=== PATIENT | male | born 1965 | race Caucasian/White ===

== ENCOUNTER 2018-05-28 11:14 | Emergency (ER) | payer BC, OTHER ==
--- NOTE | 2018-05-28 12:19 | ED Physician Documentation ---
PD HPI FOCAL NEURO - Stated complaint Stated Complaint: UNBALANCED WHILE STANDING - Chief complaint Chief Complaint: Neuro - History obtained from History obtained from: Patient - History of Present Illness Timing - onset: Today (he says he felt okay yesterday and going to bed last night. He says when he got up from bed this morning after awakening he felt off balance and that he might fall over. He started doing morning activities and felt probably and weaker with his left hand and leg. He denies any headache. Denies any facial droop. He is able to talk clearly. He denied any loss of vision. His says his answers to questions are a bit slower and deliberate than usual.) Timing - duration: Hours (unclear onset as awoke with symptoms) Timing - details: Abrupt onset Severity of deficit: Mild Weakness: Arm, Hand, Leg, Other (mostly feeling incoordinate with gross motor strength feeling okay.). No: Face Numbness: No: Face, Arm, Leg Associated symptoms: No: Headache, Nausea / vomiting, Syncope, Fall, Head injury Contributing factors: negative: Anticoagulated, Vascular dz, Atrial fibrillation Baseline status: positive: A&OX3, ambulatory, indep Similar symptoms before: Has not had sx before (but he says he had an episode about 2-3 weeks ago of left eye losing conjugate gaze (he and say it was just going in circles and sideways independent of the right eye), lastd just 10- 15 seconds then improved. No other symptoms.) Recently seen: Not recently seen Review of Systems Constitutional: denies: Fever, Chills Nose: denies: Rhinorrhea / runny nose, Congestion Throat: denies: Sore throat Cardiac: denies: Chest pain / pressure, Palpitations Respiratory: denies: Cough GI: denies: Abdominal Pain, Nausea, Vomiting Neurologic: reports: Focal weakness, Other (unsteady gait and left arm movements.). denies: Numbness, Difficulty speaking, Near syncope, Confused, Altered mental status, Headache, Head injury Endocrine: denies: Weight loss Immunocompromised: denies: Immunocompromised PD PAST MEDICAL HISTORY - Past Medical History Past Medical History: No Cardiovascular: None Respiratory: None Neuro: None Endocrine/Autoimmune: None - Past Surgical History Past Surgical History: No - Present Medications Home Medications: Ambulatory Orders Medication Instructions Recorded Confirmed No Known Home Medications [No 05/28/18 05/28/18 Known Home Medications] - Allergies Allergies/Adverse Reactions: Allergies Allergy/AdvReac Type Severity Reaction Status Date / Time No Known Drug Allergies Allergy Verified 05/28/18 11:21 - Living Situation Living Situation: reports: With spouse/s.o. Living Arrangement: reports: At home - Social History Does the pt smoke?: No Smoking Status: Never smoker Does the pt drink ETOH?: No Does the pt have substance abuse?: No - Family History Family history: denies: Venous thromboembolism, CVA PD ED PE NORMAL - Vitals Vital signs reviewed: Yes - General General: Alert and oriented X 3, No acute distress, Well developed/nourished - HEENT HEENT: Atraumatic, PERRL, EOMI, Pharynx benign - Neck Neck: Supple, no meningeal sign, No adenopathy, No bruit - Cardiac Cardiac: RRR, No murmur - Respiratory Respiratory: Clear bilaterally - Abdomen Abdomen: Soft, Non tender - Male Male : Deferred - Rectal Rectal: Deferred - Back Back: No CVA TTP - Derm Derm: Normal color, Warm and dry - Extremities Extremities: No deformity, No tenderness to palpate, Normal ROM s pain, No edema , No calf tenderness / cord - Neuro Neuro: Alert and oriented X 3, traffic signal repairer 2-12 intact, No sensory deficit, Normal speech, Other (just faintly weaker hand tire trimmer and pull left arm. He is able to stand and walk. Mild antalgic gait. Cerebellar is abnormal with slow and unsteady finger nose finger test and heel to tao for left side. He is unable to stand up on left foot alone, but can on right easily. ) Eye Opening: Spontaneous Motor: Obeys Commands Verbal: Oriented GCS Score: 15 - Psych Psych: Normal mood, Normal affect NIHSS - Level of Consciousness Level of consciousness: (0) Alert, Keenly responsive LOC Questions: (0) Answers both Q's correct LOC Commands: (0) Performs both correctly - Gaze Best Gaze: (0) Normal - Visual Visual: (0) No loss - Facial Palsy Facial Palsy: (0) Normal, symmetrical movement - Motor Arms (both separate) Motor Arm (right): (0) No drift Motor Arm (left): (0) No drift - Motor Legs (both separate) Motor Leg (right): (0) No drift Motor Leg (left): (0) No drift - Limb Ataxia Limb Ataxia: (2) Present in 2 limbs - Sensory Sensory: (0) Normal - Best Language Best Language: (0) No aphasia - Dysarthria Dysarthria: (0) Normal - Extinction and Inattention (formally neg Extinction and inattention: (0) No abnormality - Total Score/Results Total Score/Result: 2 Results - Vitals Vitals: Vital Signs - 24 hr 05/28/18 05/28/18 05/28/18 11:16 14:17 15:59 Temperature 36.3 C L 36.2 C L Heart Rate 57 L 56 L 57 L Respiratory 18 19 18 Rate Blood Pressure 112/80 108/78 112/86 H O2 Saturation 100 100 97 05/28/18 18:46 Temperature 36.3 C L Heart Rate 50 L Respiratory 12 Rate Blood Pressure 112/86 H O2 Saturation 100 Oxygen O2 Source Room air - Labs Labs: Laboratory Tests 05/28/18 05/28/18 05/28/18 00:34 11:34 11:34 WBC 5.8 RBC 3.86 L Hgb 13.3 L Hct 38.9 L MCV 100.8 H MCH 34.6 H MCHC 34.3 RDW 13.0 Plt Count 152 MPV 10.7 Neut # (Auto) 2.8 Lymph # (Auto) 2.4 Glades # (Auto) 0.5 Eos # (Auto) 0.0 Baso # (Auto) 0.0 Absolute Nucleated RBC 0.00 Nucleated RBC % 0.1 Sodium 138 Potassium 4.1 Chloride 106 Carbon Dioxide 27 Anion Gap 5.0 L BUN 10 Creatinine 0.8 Estimated GFR (MDRD) 102 Glucose 94 Calcium 8.6 Magnesium 2.0 Total Bilirubin 0.8 AST 26 ALT 18 Alkaline Phosphatase 36 L Total Protein 6.8 Albumin 3.8 Globulin 3.0 Albumin/Globulin Ratio 1.3 Lipase 27 TSH 2.16 - Rads (name of study) head CT Radiology: Prelim report reviewed (normal head CT), EMP read contemporaneously brain MRI Radiology: Prelim report reviewed, EMP read contemporaneously PD MEDICAL DECISION MAKING - ED course Complexity details: reviewed results (normal ECG, vitals, labs, CT head and then MRI brain. ), re-evaluated patient (He is mostly improved, seems just minimally sluggish finger nose finger test but is able to walk without ataxia. I talked with [facility]. With the normal testing thus far, would have to presume TIA. Suggested potential OBS. I talked with patient and he would prefer going home. To take ASA daily. ), considered differential (symptoms upon awakening of cerebellar signs on left side. No vertigo. Would indicate crebellar lesion such as CVA, bleed, MS. Able to get CT which is normal, so some processes excluded. Can get MRI in few hours and discussed with patient, who is okay waiting. I felt this appropriate since negative test could be discharge, and positive test would likely want transfer perhaps, so more appropriate than OBS given the time of day. ), d/w patient - Sepsis Event Vital Signs: Vital Signs - 24 hr 05/28/18 05/28/18 05/28/18 11:16 14:17 15:59 Temperature 36.3 C L 36.2 C L Heart Rate 57 L 56 L 57 L Respiratory 18 19 18 Rate Blood Pressure 112/80 108/78 112/86 H O2 Saturation 100 100 97 05/28/18 18:46 Temperature 36.3 C L Heart Rate 50 L Respiratory 12 Rate Blood Pressure 112/86 H O2 Saturation 100 Oxygen O2 Source Room air Departure - Departure Disposition: 01 Home, Self Care Clinical Impression: Acute cerebellar ataxia, Stroke-like symptoms Condition: Stable Record reviewed to determine appropriate education?: Yes Instructions: ED Transient Ischemic Attack Follow-Up: [facility] [Provider Group] [facility] [place] [Provider Group] Comments: Stay well-hydrated. Take a baby aspirin 81 mg daily. Follow-up local provider group, call for an appointment. Return if worsening symptoms.
[2018-05-28] MEDS ORDERED: SODIUM CHLORIDE 0.9% 1,000 ML IV ONE (12:48)
[2018-05-28 13:05] LABS: BASOPHILS % (AUTO) 0.5 %; EOSINOPHILS % (AUTO) 0.7 %; HGB - HEMOGLOBIN 13.3 g/dL (14.0-18.0); LYMPHOCYTES # (AUTO) 2.4 10^3/uL (1.5-3.5); LYMPHOCYTES % (AUTO) 41.9 %; MEAN CORPUSCULAR HEMOGLOBIN 34.6 pg (27.0-31.0); MEAN CORPUSCULAR HGB CONC 34.3 g/dL (32.0-36.0); MEAN CORPUSCULAR VOLUME 100.8 fL (80.0-94.0); MEAN PLATELET VOLUME 10.7 fL (7.4-11.4); MONOCYTES # (AUTO) 0.5 10^3/uL (0.0-1.0); MONOCYTES % (AUTO) 8.9 %; NEUTROPHILS # (AUTO) 2.8 10^3/uL (1.5-6.6); PLT - PLATELET COUNT 152 10^3/uL (130-450); RED BLOOD COUNT 3.86 10^6/uL (4.70-6.10); WHITE BLOOD COUNT 5.8 x10^3/uL (4.8-10.8)
[2018-05-28 13:15] LABS: ALBUMIN 3.8 g/dL (3.2-5.5); ALBUMIN/GLOBULIN RATIO 1.3 (1.0-2.2); BILIRUBIN,TOTAL 0.8 mg/dL (0.2-1.0); CALCIUM 8.6 mg/dL (8.5-10.3); CREATININE 0.8 mg/dL (0.6-1.2); TOTAL PROTEIN 6.8 g/dL (6.7-8.2)
--- NOTE | 2018-05-28 14:00 | CT Report ---
Procedure Date: 05/28/2018 Accession Number: [id number] / [id number] Procedure: CT - Head W/O CPT Code: FULL RESULT: EXAM: CT HEAD EXAM DATE: 05/28/2018 01:50 PM. CLINICAL HISTORY: Left weakness and ataxia. COMPARISON: None. TECHNIQUE: Multiaxial CT images were obtained from the foramen magnum to the vertex. Reformats: Coronal. IV contrast: None. In accordance with CT protocol optimization, one or more of the following dose reduction techniques were utilized for this exam: automated exposure control, adjustment of mA and/or KV based on patient size, or use of iterative reconstructive technique. FINDINGS: Parenchyma: No intraparenchymal hemorrhage. No evidence of mass, midline shift, or CT findings of infarction. New-white differentiation is distinct. Extraaxial Spaces: Normal for age. No subdural or epidural collections. Ventricles: Normal in size and position. Sinuses and Orbits: Imaged paranasal sinuses, orbits, and mastoids show no significant abnormality. Bones: Unremarkable. Other: None. IMPRESSION: Normal head CT. RADIA
[2018-05-28] MEDS ORDERED: GADOBUTROL 10 MMOL/10 ML VIAL ONE (18:05)
[2018-05-28] MEDS ORDERED: GADOBUTROL 10 MMOL/10 ML VIAL IVP ONE (18:09)
--- NOTE | 2018-05-28 19:02 | MRI Report ---
Procedure Date: 05/28/2018 Accession Number: [id number] / [id number] Procedure: MRI - Brain W/WO CPT Code: FULL RESULT: EXAM: MRI BRAIN WITHOUT AND WITH CONTRAST EXAM DATE: 05/28/2018 06:30 PM. CLINICAL HISTORY: 52-year-old male. Off balance and left weakness today. COMPARISON: HEAD W/O 05/28/2018. TECHNIQUE: Multiplanar, multisequence T1-weighted and fluid-sensitive MR sequences of the brain were performed. Sequences optimized for routine evaluation. Other: None. IV Contrast: 8 mL Gadavist. FINDINGS: Brain Volume: Normal for age. Parenchyma: No acute hemorrhage, mass, or infarct. No white matter lesions identified. No abnormal enhancement. No parenchymal foci of susceptibility artifact. Ventricles/Cisterns: No hydrocephalus. No abnormal extra-axial fluid collection or hemorrhage. Orbits: Symmetric and unremarkable. Sella Turcica: The pituitary gland, cavernous sinuses, suprasellar cistern and optic chiasm are unremarkable. IAC: Symmetric and unremarkable. Vasculature: Normal signal flow void is seen in the major arterial structures at the skull base. The dural sinuses are patent and enhance normally. Sinuses: No acute sinus disease. Bones: No focal pathologic appearing marrow signal changes. Other: None. IMPRESSION: 1. Unremarkable MRI examination of the brain. No MRI evidence of acute intracranial abnormality. Specifically, no evidence of acute or subacute infarct, acute intracranial hemorrhage, mass, midline shift, or hydrocephalus. No abnormal enhancement. No significant white matter disease burden. RADIA
[2018-05-28] MEDS ORDERED: ASPIRIN CHEW 81 MG TABLET PO STA (19:30)
[2018-05-28 19:37] VITALS: BP 127/90
== END 2018-05-28 19:41 | disposition home or self-care (01) ==
LOC: ED 11:14
DX: G11.9 Hereditary ataxia, unspecified (principal); R53.1 Weakness
CPT/HCPCS: 36415; 70450; 70553; 80053; 83690; 83735; 84443; 85025; 93005; 96361; 96374; 99283; 99284; A9270; A9585

== ENCOUNTER 2018-08-25 14:36 | Emergency (ER) | payer BC ==
--- NOTE | 2018-08-25 15:26 | XRAY Report ---
Reason: left forearm injury Procedure Date: 08/25/2018 Accession Number: [id number] / [id number] Procedure: XR - Forearm LT CPT Code: FULL RESULT: EXAM: LEFT FOREARM RADIOGRAPHY EXAM DATE: 08/25/2018 03:13 PM. CLINICAL HISTORY: Left forearm injury. COMPARISON: None. TECHNIQUE: 2 views. FINDINGS: Bones: No fracture or focal bony lesion. Joints: No evidence of dislocation. Soft Tissues: No unexpected soft tissue findings. IMPRESSION: No evidence of fracture or dislocation. RADIA
[2018-08-25] MEDS ORDERED: TETANUS/DIPHTHERIA/PERTUSSIS 0.5 ML SYRINGE IM ONE (15:35)
[2018-08-25] MEDS ORDERED: BACITRACIN OINT TOP STA (15:35)
--- NOTE | 2018-08-25 15:37 | ED Physician Documentation ---
History of Present Illness - Stated complaint Stated Complaint: L ARM PX/FALL 12FT - Chief complaint Chief Complaint: Ext Problem - History obtained from History obtained from: Patient, Family - History of Present Illness Timing: How many hours ago (1) Pain level max: 8 Pain level now: 4 Improved by: rest Worsened by: movement - Additonal information Additional information: Patient is a 53-year-old male who presents to the emergency department after falling off of a ladder today. Landed on the left forearm. Has pain to the left forearm. No head or neck or back pain. Patient also has a laceration to the right anterior tao. No loss of consciousness. No vomiting. Does have mild tingling to the left fifth digit. Patient is right-handed. Review of Systems Constitutional: denies: Fever, Chills Ears: denies: Ear pain GI: denies: Vomiting Skin: denies: Rash Musculoskeletal: denies: Neck pain, Back pain Neurologic: denies: Focal weakness, Numbness, Confused, Altered mental status, Headache, LOC PD PAST MEDICAL HISTORY - Past Medical History Cardiovascular: None Respiratory: None Neuro: None Endocrine/Autoimmune: None - Past Surgical History Past Surgical History: No - Present Medications Home Medications: Ambulatory Orders Medication Instructions Recorded Confirmed No Known Home Medications 05/28/18 05/28/18 - Allergies Allergies/Adverse Reactions: Allergies Allergy/AdvReac Type Severity Reaction Status Date / Time No Known Drug Allergies Allergy Verified 05/28/18 11:21 - Social History Does the pt smoke?: No Smoking Status: Never smoker Does the pt drink ETOH?: No Does the pt have substance abuse?: No PD ED PE NORMAL - Vitals Vital signs reviewed: Yes - General General: Alert and oriented X 3, No acute distress - HEENT HEENT: Atraumatic, PERRL, Moist mucous membranes - Neck Neck: Supple, no meningeal sign, No bony TTP - Cardiac Cardiac: RRR - Respiratory Respiratory: No respiratory distress, Clear bilaterally - Abdomen Abdomen: Soft, Non tender, Non distended - Back Back: No spinal TTP - Derm Derm: Warm and dry - Extremities Extremities: Other (TTP L mid forearm, ulnar aspect. mild decreased sensation L 5th digit. o/w NVI. Normal pronation and supination. 1cm laceration to the anterior tao, subcutaneous. no bony tenderness. ) - Neuro Neuro: Alert and oriented X 3, No motor deficit, No sensory deficit Results - Vitals Vitals: Vital Signs - 24 hr 08/25/18 15:00 Temperature 36.2 C L Heart Rate 82 Respiratory 16 Rate Blood Pressure 113/76 O2 Saturation 100 Oxygen O2 Source Room air Procedures - Laceration (location) R anterior tao Length in cm: 1 Wound type: Linear, Into subcut fat Neurovascular status: Sensory intact, Motor intact, Vascular intact Tendon involvement: Tendon intact, Tendon Injury Wound Preparation: Irrigated copiously NS Skin layer closure: [place] (2) Other: Patient tolerated well, No complications, Neurovascular intact, Dressing applied, Tetanus UTD Complexity: Simple PD MEDICAL DECISION MAKING - ED course Complexity details: considered differential, d/w patient ED course: Patient is a 53-year-old male who presents to the emergency department with a left forearm contusion after a fall off of the ladder today. No acute findings on x-ray. Also has a small laceration on the right anterior tibia. This was closed with ceasar. Tolerated well. Tdap given. Warnings of infection and instructions on wound care given at bedside. Also counseled on how to minimize scarring. Patient counseled regarding signs and symptoms for which I believe and urgent re-evaluation would be necessary. Patient with good understanding of and agreement to plan and is comfortable going home at this time This document was made in part using voice recognition software. While efforts are made to proofread this document, sound alike and grammatical errors may occur. - Sepsis Event Vital Signs: Vital Signs - 24 hr 08/25/18 15:00 Temperature 36.2 C L Heart Rate 82 Respiratory 16 Rate Blood Pressure 113/76 O2 Saturation 100 Oxygen O2 Source Room air Departure - Departure Disposition: 01 Home, Self Care Clinical Impression: Forearm contusion Qualifiers: Encounter type: initial encounter Laterality: left Qualified Code(s): S50.12XA - Contusion of left forearm, initial encounter Leg laceration Qualifiers: Encounter type: initial encounter Laterality: right Qualified Code(s): S81.811A - Laceration without foreign body, right lower leg, initial encounter Condition: Good Instructions: ED Contusion Upper Ext, ED Laceration Ext Sutr Stap Tape Follow-Up: your, doctor in 10-14 days for staple removal [Other] Comments: Return if you worsen. Your x-ray is normal today. The ceasar should be removed in approximately 10-14 days with your doctor. Keep the wound clean. Return if you notice redness, swelling or drainage from the wound. the numbness in your finger should resolve over the next few days. Discharge Date/Time: 08/25/18 16:10
[2018-08-25 16:11] VITALS: BP 106/74
== END 2018-08-25 16:10 | disposition home or self-care (01) ==
LOC: ED 14:36
DX: S50.12XA Contusion of left forearm, initial encounter (principal); S81.811A Laceration without foreign body, right lower leg, initial encounter; W11.XXXA Fall on and from ladder, initial encounter; Z23 Encounter for immunization
CPT/HCPCS: 12001; 73090; 90471; 90715; 99282; 99283; A9270